=== PATIENT | male | born 1990 | race Caucasian/White ===

== ENCOUNTER 2017-02-19 20:43 | Emergency (ER) | payer OTHER ==
[~2017-02-19] VITALS: Ht 188 cm; Wt 88.0 kg
[2017-02-19 20:44] VITALS: BP 158/102; PULSE 116; RESP 18; TEMP 98.1; O2SAT 100
[2017-02-19 21:49] LABS: AUTOMATED NEUTROPHIL # 6.2 TH/MM3 (1.8-7.7); BASOPHIL # 0.1 TH/MM3 (0-0.2); BASOPHIL % 0.6 % (0.0-2.0); EOSINOPHIL # 0.1 TH/MM3 (0-0.4); HEMATOCRIT 44.7 % (39.0-51.0); HEMO FLAGS DIFF FINAL; LYMPH % 20.7 % (9.0-44.0); LYMPHOCYTE # 1.8 TH/MM3 (1.0-4.8); MEAN CORPUSCULAR HEMOGLOBIN 30.1 PG (27.0-34.0); MONO % 7.5 % (0.0-8.0); NEUT % 70.2 % (16.0-70.0); PLATELET COUNT 290 TH/MM3 (150-450); RED CELL DISTRIBUTION WIDTH 13.1 % (11.6-17.2); WHITE BLOOD COUNT 8.9 TH/MM3 (4.0-11.0)
[2017-02-19 22:01] LABS: ANION GAP 8 MEQ/L (5-15); AST (GOT) 12 U/L (15-37); BICARBONATE 28.4 MEQ/L (21.0-32.0); BLOOD UREA NITROGEN 13 MG/DL (7-18); CHLORIDE 104 MEQ/L (98-107); GLOMERULAR FILTRATION RATE 70 ML/MIN (>89); POTASSIUM 3.9 MEQ/L (3.5-5.1); SODIUM (NA) 140 MEQ/L (136-145)
[2017-02-19 22:04] LABS: ALKALINE PHOSPHATASE 72 U/L (45-117); ALT (GPT) 29 U/L (12-78); TOTAL BILIRUBIN ADULT 0.9 MG/DL (0.2-1.0)
--- NOTE | 2017-02-19 22:10 | PD ---
HPI Chief Complaint: Syncope/Near-Syncope Time Seen by Provider: 21:52 Travel History International Travel<30 days: No Contact w/Intl Traveler<30days: No Traveled to known affect area: No History of Present Illness HPI 26-year-old male complains of shortness of breath, generalized malaise and weakness, extremity numbness and near-syncope. Patient states the symptoms started about an hour prior coming to the emergency room. Patient states that he has been smoking an experimental, research chemical recently. Patient's unable to tell me about the chemical substance. Last use was 6 hours ago. Patient denies any headache. Patient denies any visual change. Patient denies any chest pain. Patient complaining of shortness of breath. Patient complains generalized malaise and weakness. Patient states that the numbness sensation resolving. Patient denies any abdominal pain. Patient denies any nausea vomiting diarrhea. Patient denies any fever chills or back pain. Patient states that he is not on routine medication. Patient denies any past medical history. PFSH Past Medical History Medical History: Denies Significant Hx Tetanus Vaccination: > 5 Years Influenza Vaccination: No Past Surgical History Surgical History: No Previous Surgery Social History Alcohol Use: Yes (RARE) Tobacco Use: Yes (1 PPD ) Substance Use: Yes (OCC. RESEARCH CHEMICALS.) Allergies-Medications (Allergen,Severity, Reaction): Coded Allergies: No Known Allergies (Unverified , 02/19/17) Reported Meds & Prescriptions Reported Meds & Active Scripts Active No Active Prescriptions or Reported Medications Review of Systems General / Constitutional: No: Fever Eyes: No: Visual changes HENT: No: Headaches Cardiovascular: No: Chest Pain or Discomfort Respiratory: Positive: Shortness of Breath Gastrointestinal: No: Abdominal Pain Genitourinary: No: Dysuria Musculoskeletal: No: Pain Skin: No Rash Neurologic: No: Weakness Psychiatric: No: Depression Endocrine: No: Polydipsia Hematologic/Lymphatic: No: Easy Bruising Physical Exam Narrative GENERAL: Well-nourished, well-developed patient. SKIN: Warm and dry. HEAD: Normocephalic. EYES: No scleral icterus. No injection or drainage. Pupils dilated, 5 mm and reactive. NECK: Supple, trachea midline. No JVD or lymphadenopathy. CARDIOVASCULAR: Regular rate and rhythm without murmurs, gallops, or rubs. RESPIRATORY: Breath sounds equal bilaterally. No accessory muscle use. GASTROINTESTINAL: Abdomen soft, non-tender, nondistended. MUSCULOSKELETAL: No cyanosis, or edema. BACK: Nontender without obvious deformity. No CVA tenderness. Neurologic exam: Patient is awake and alert oriented 3. No obvious focal neurological deficit. Data Data Last Documented VS Vital Signs Date Time Temp Pulse Resp B/P Pulse Ox O2 Delivery O2 Flow Rate FiO2 02/19/17 20:44 98.1 116 18 158/102 100 Orders Electrocardiogram (02/19/17 21:12) Complete Blood Count With Diff (02/19/17 21:12) Comprehensive Metabolic Panel (02/19/17 21:12) Iv Access Insert/Monitor (02/19/17 21:12) Creatine Kinase (Cpk) (02/19/17 21:58) Troponin I (02/19/17 21:58) Prothrombin Time / Inr (Pt) (02/19/17 21:58) Act Partial Throm Time (Ptt) (02/19/17 21:58) Chest, Single Ap (02/19/17 21:58) Ecg Monitoring (02/19/17 21:58) Oximetry (02/19/17 21:58) Drug Screen, Random Urine (02/19/17 21:58) Alcohol (Ethanol) (02/19/17 21:58) Salicylates (Aspirin) (02/19/17 21:58) Tylenol (Acetaminophen) (02/19/17 21:58) Sodium Chlor 0.9% 1000 Ml Inj (Ns 1000 M (02/19/17 22:15) Labs Laboratory Tests Test 02/19/17 02/19/17 21:25 22:23 White Blood Count 8.9 TH/MM3 Red Blood Count 5.20 MIL/MM3 Hemoglobin 15.7 GM/DL Hematocrit 44.7 % Mean Corpuscular Volume 86.0 FL Mean Corpuscular Hemoglobin 30.1 PG Mean Corpuscular Hemoglobin 35.0 % Concent Red Cell Distribution Width 13.1 % Platelet Count 290 TH/MM3 Mean Platelet Volume 8.4 FL Neutrophils (%) (Auto) 70.2 % Lymphocytes (%) (Auto) 20.7 % Monocytes (%) (Auto) 7.5 % Eosinophils (%) (Auto) 1.0 % Basophils (%) (Auto) 0.6 % Neutrophils # (Auto) 6.2 TH/MM3 Lymphocytes # (Auto) 1.8 TH/MM3 Monocytes # (Auto) 0.7 TH/MM3 Eosinophils # (Auto) 0.1 TH/MM3 Basophils # (Auto) 0.1 TH/MM3 CBC Comment DIFF FINAL Differential Comment Sodium Level 140 MEQ/L Potassium Level 3.9 MEQ/L Chloride Level 104 MEQ/L Carbon Dioxide Level 28.4 MEQ/L Anion Gap 8 MEQ/L Blood Urea Nitrogen 13 MG/DL Creatinine 1.25 MG/DL Estimat Glomerular Filtration 70 ML/MIN Rate Random Glucose 102 MG/DL Calcium Level 9.9 MG/DL Total Bilirubin 0.9 MG/DL Aspartate Amino Transf 12 U/L (AST/SGOT) Alanine Aminotransferase 29 U/L (ALT/SGPT) Alkaline Phosphatase 72 U/L Total Protein 8.2 GM/DL Albumin 4.6 GM/DL Prothrombin Time 11.5 SEC Prothromb Time International 1.0 RATIO Ratio Activated Partial 24.5 SEC Thromboplast Time Total Creatine Kinase 136 U/L Troponin I LESS THAN 0.02 NG/ML Salicylates Level 2.7 MG/DL Acetaminophen Level LESS THAN 2.0 MCG/ML Ethyl Alcohol Level 3 MG/DL MDM Medical Decision Making Medical Screen Exam Complete: Yes Emergency Medical Condition: Yes Interpretation(s) Last Impressions Chest X-Ray 02/19/175 Signed Impressions: Service Date/Time: Sunday, February 19, 2017 22:14 - CONCLUSION: No acute disease. French Justice MD 11:02 PM. CBC within normal limit. CMP within normal limit. Cardiac enzymes are normal. Differential Diagnosis Differential diagnosis including chemical induced mood disorder, electrolyte imbalance, dehydration. Narrative Course 26-year-old male with generalized malaise and weakness and shortness of breath and numbness sensation of extremity. Patient has been smoking a research chemical recently. Normal saline solution 1 25 cc an hour. Diagnosis Primary Impression: Substance induced mood disorder Patient Instructions: General Instructions Additional Instructions: Advised patient against abusing drugs. Follow-up with personal physician. Return if worse. Med/Other Pt SpecificInfo: No Meds Exist/No RX given Scripts No Active Prescriptions or Reported Meds Disposition: 01 DISCHARGE HOME Condition: Stable Cristian Fernández MD Feb 19, 2017 22:10
[2017-02-19] MEDS ORDERED: SODIUM CHLOR 0.9% 1000 ML INJ 1,000 ML IV SCH (22:15)
--- NOTE | 2017-02-19 22:30 | RADRPT ---
EXAM DATE/TIME: 02/19/2017 22:14 [facility] COMPARISON: No previous studies available for comparison. INDICATIONS : SOB MEDICAL HISTORY : General weakness. SURGICAL HISTORY : None. ENCOUNTER: Initial ACUITY: 1 day PAIN SCORE: 0/10 LOCATION: chest FINDINGS: A single view of the chest demonstrates the lungs to be symmetrically aerated without evidence of mas s, infiltrate or effusion. The cardiomediastinal contours are unremarkable. Osseous structures are intact. CONCLUSION: No acute disease. French Justice MD on February 19, 2017 at 22:28 Board Certified Radiologist. This report was verified electronically.
[2017-02-19 23:02] LABS: APTT (PATIENT) 24.5 SEC (24.3-30.1); PROTHROMBIN TIME - PATIENT 11.5 SEC (9.8-11.6)
[2017-02-19 23:19] LABS: ACETAMINOPHEN LESS THAN 2.0 MCG/ML (10.0-30.0)
[2017-02-19 23:22] LABS: CREATINE KINASE 136 U/L (39-308)
[2017-02-20 00:19] VITALS: BP 138/89
--- NOTE | 2017-02-20 16:29 | EKG ---
Date Performed: 02/19/2017 Time Performed: 21:19:14 PTAGE: 26 years EKG: Sinus rhythm RIGHT ATRIAL ENLARGEMENT Since previous tracing, no significant change noted ABNORMAL ECG NO PREVIOUS TRACING DOCTOR: Maxi Booth Interpretating Date/Time 02/20/2017 16:27:42
== END 2017-02-20 00:20 | disposition home or self-care (01) ==
LOC: NEPE 20:43
DX: F19.94 Other psychoactive substance use, unspecified with psychoactive substance-induced mood disorder (principal); R06.02 Shortness of breath; R53.81 Other malaise; R53.1 Weakness; R20.0 Anesthesia of skin; R55 Syncope and collapse; R94.31 Abnormal electrocardiogram [ECG] [EKG]; F17.200 Nicotine dependence, unspecified, uncomplicated
CPT/HCPCS: 71010; 80053; 80307; 82550; 84484; 85025; 85610; 85730; 93005; 96360; 99285; J7030